=== PATIENT | female | born 2005 | race Caucasian/White ===

== ENCOUNTER 2023-02-10 11:10 | Emergency (ER) | payer OTHER ==
[2023-02-10] MEDS ORDERED: Bicillin LA 1.2 MILLION UNITS/2 ML SYRINGE IM SCH (12:00)
[2023-02-10 12:33] LABS: SARS-CoV-2 NAA Rapid Test Not Detected (NotDetected)
== END 2023-02-10 12:35 | disposition home or self-care (01) ==
LOC: CSHERS 11:10
DX: J02.9 Acute pharyngitis, unspecified (principal); Z20.822 Contact with and (suspected) exposure to COVID-19
CPT/HCPCS: 87081; 87430; 96372; 99283; J0561